=== PATIENT | male | born 1980 | race African-American/Black ===

== ENCOUNTER 2016-08-31 07:36 | Emergency (ER) | payer BC ==
[2016-08-31 07:48] VITALS: BP 151/95
--- NOTE | 2016-08-31 08:09 | RAD ---
INDICATION: RIGHT wrist pain medially and decreased range of motion post fall. COMPARISON: None. TECHNIQUE: AP, lateral, and oblique views RIGHT wrist. REPORT: There is dislocation of the carpus posteriorly at the radiocarpal joint with the lunate maintaining alignment with the radiocarpal joint. No fracture evident. Scapholunate and lunotriquetral diastases favoring ligament tears. Associated soft tissue swelling about the wrist. IMPRESSION: Perilunate dislocation. As there is high association of scaphoid fracture (60%) with perilunate dislocation further assessment with CT suggested.
[2016-08-31] MEDS ORDERED: Ibuprofen TAB* 400 MG PO ONE (08:16)
--- NOTE | 2016-08-31 08:25 | UC ---
Upper Extremity HPI - HPI Summary HPI Summary: fell down stairs 2d ago, fell onto outstretched right hand. Immediate pain and swelling. Unable to use wrist since then due to pain. - History of Current Complaint Chief Complaint: UCUpperExtremity Stated Complaint: RIGHT WRIST INJURY Time Seen by Provider: 08/31/16 07:45 Hx Obtained From: Patient ?: No Onset/Duration: Sudden Onset, Lasting Days - 2 Severity Initially: Severe Severity Currently: Moderate Location Of Pain: Is Discrete @ - right wrist Character: Dull, Aching, Stiffness Aggravating Factor(s): Movement Alleviating Factor(s): Ice Associated Signs And Symptoms: Positive: Swelling Related History: Dominant Hand Right - Risk Factors Non-Orthopedic Risk Factor: Negative DVT Risk Factors: Negative Septic Arthritis Risk Factor: Negative Compartment Syndrome Risk Factors: Pain - Allergies/Home Medications Allergies/Adverse Reactions: Allergies Allergy/AdvReac Type Severity Reaction Status Date / Time No Known Allergies Allergy Verified 08/31/16 07:43 Home Medications: Home Medications Ibuprofen [Advil] 800 mg PO ONCE PRN 08/31/16 [History Confirmed 08/31/16] PMH/Surg Hx/FS Hx/Imm Hx Previously Healthy: Yes - Surgical History Surgical History: None - Family History Known Family History: Positive: Other - no skeletal disorders - Social History Occupation: Employed Full-time Lives: With Family Alcohol Use: Occasionally Substance Use Type: None Smoking Status (MU): Never Smoked Tobacco Review of Systems Constitutional: Negative Skin: Negative Eyes: Negative ENT: Negative Respiratory: Negative Cardiovascular: Negative Gastrointestinal: Negative Genitourinary: Negative Motor: Negative Neurovascular: Negative Musculoskeletal: Arthralgia, Decreased ROM, Edema Neurological: Negative Psychological: Negative All Other Systems Reviewed And Are Negative: Yes Physical Exam Triage Information Reviewed: Yes Appearance: Well-Appearing, No Pain Distress, Well-Nourished Vital Signs: Initial Vital Signs Temp 98.2 F 08/31/16 07:45 Pulse 59 08/31/16 07:45 Resp 16 08/31/16 07:45 BP 151/95 08/31/16 07:45 Pulse Ox 100 08/31/16 07:45 Vital Signs Reviewed: Yes Eye Exam: Normal Neck exam: Normal Respiratory Exam: Normal Cardiovascular Exam: Normal Musculoskeletal Exam: Other - right hand and wrist swollen and diffusely tender. Pain with any motion of wrist or fingers. Neurological Exam: Normal Psychological Exam: Normal Skin Exam: Normal Diagnostics - Laboratory Diagnostic Studies Completed/Ordered: wrist xray: scapholunate dislocation Upper Extremity Course/Dx - Course Course Of Treatment: discussed with Dr. Avalos (Orthopedics). He spoke with Dr. Roe, Hand Surgery. Dr. Roe will see this patient in the ER at [place], may need surgical repair. Patient signs form to drive himself to the ER. D/[place] [facility] [place] Differential Dx/Diagnosis Differential Diagnosis/HQI/PQRI: Fracture (Closed), Sprain Provider Diagnoses: scapholunate dislocation Discharge - Discharge Plan Condition: Stable Disposition: TRANS HIGHER LVL OF CARE FAC Referrals: No Primary Care Phys,NOPCP [Primary Care Provider] -
--- NOTE | 2016-08-31 09:20 | RAD ---
INDICATION: Perilunate dislocation. COMPARISON: Comparison is made with a prior x-ray study of the right wrist obtained earlier today. TECHNIQUE: Contiguous axial sections were obtained of the right wrist. Images were reconstructed in the sagittal and coronal planes. FINDINGS: There is diffuse soft tissue swelling present. There is posterior dislocation of the capitate and carpal bones posterior relative to the lunate bone consistent with a perilunate dislocation. The lunate remains in relative normal alignment with the radius. The lunate and capitate bones are overriding by approximately 7 mm. There are couple small chip fracture fragments located between the posterior aspect of the distal radius and scaphoid bone measuring 1-3 mm in size. There is also a small fracture fragment located between the lunate and triquetral bones measuring approximately 1-2 mm in size. IMPRESSION: PERILUNATE DISLOCATION, THERE ARE SMALL CHIP FRACTURE FRAGMENTS LOCATED BETWEEN THE SCAPHOID BONE AND DISTAL RADIUS AND BETWEEN THE LUNATE AND TRIQUETRAL BONES.
== END 2016-08-31 09:01 | disposition short-term general hospital (02) ==
LOC: UCCORT 07:36
DX: S62.001A Unspecified fracture of navicular [scaphoid] bone of right wrist, initial encounter for closed fracture (principal); W10.9XXA Fall (on) (from) unspecified stairs and steps, initial encounter; Y92.9 Unspecified place or not applicable
CPT/HCPCS: 99202; A9270-GY; G0463

== ENCOUNTER 2016-08-31 10:21 | Emergency (ER) | payer BC ==
[2016-08-31 10:35] VITALS: BP 162/98
--- NOTE | 2016-08-31 12:21 | ED ---
Ramirez Melara Adam, scribed for Arie Bolden MD on 08/31/16 at 1049 . Upper Extremity Pain - HPI Summary HPI Summary: A 36 y/o male presents to the ED from [facility] c/o right hand/wrist pain after falling down 6-7 stairs 2 days ago. Patient has decreased ROM and swelling to the right hand. He was diagnosed with a perilunate dislocation by CT scan at [facility] earlier today and was sent to the ED for a consult with Ortho. - History of Current Complaint Chief Complaint: EDExtremityUpper Stated Complaint: RT HAND INJURY Time Seen by Provider: 08/31/16 10:39 Hx Obtained From: Patient, Medical Records - Sent from [facility] Mechanism Of Injury: Fall From Height Of: - 6-7 stairs Onset/Duration: Started Days Ago - 2 days Timing: Constant Severity Initially: Moderate Severity Currently: Moderate Pain Location: Wrist - Right, Hand - Right Character: Dull, Aching Aggravating Factor(s): Movement Alleviating Factor(s): Ice Associated Signs & Symptoms: Positive: Swelling - Allergies/Home Medications Allergies/Adverse Reactions: Allergies Allergy/AdvReac Type Severity Reaction Status Date / Time No Known Allergies Allergy Verified 08/31/16 10:31 PMH/Surg Hx/FS Hx/Imm Hx Endocrine/Hematology History: Denies: Hx Diabetes Musculoskeletal History: Denies: Hx Arthritis Infectious Disease History: No Infectious Disease History: Denies: Traveled Outside the [place] in Last 30 Days - Family History Known Family History: Positive: Other - no skeletal disorders - Social History Alcohol Use: Occasionally Substance Use Type: Reports: None Smoking Status (MU): Never Smoked Tobacco Review of Systems Constitutional: Negative Negative: Fever Eyes: Negative ENT: Negative Cardiovascular: Negative Respiratory: Negative Gastrointestinal: Negative Genitourinary: Negative Positive: Arthralgia - Right hand/wrist, Edema - Right hand/wrist Skin: Negative Neurological: Negative Psychological: Normal All Other Systems Reviewed And Are Negative: Yes Physical Exam Triage Information Reviewed: Yes Vital Signs On Initial Exam: Initial Vitals Temp Pulse Resp BP Pulse Ox 98.4 F 52 16 162/98 100 08/31/16 10:31 08/31/16 10:31 08/31/16 10:31 08/31/16 10:31 08/31/16 10:31 Vital Signs Reviewed: Yes Appearance: Positive: Well-Appearing, No Pain Distress Skin: Positive: Warm, Skin Color Reflects Adequate Perfusion, Dry Head/Face: Positive: Normal Head/Face Inspection Eyes: Positive: EOMI, MAXINE ENT: Positive: Normal ENT inspection Neck: Positive: Supple, Nontender Respiratory/Lung Sounds: Positive: Other - no difficulty breathing Cardiovascular: Positive: RRR Abdomen Description: Positive: Nontender, Soft Bowel Sounds: Positive: Present Musculoskeletal: Positive: Edema Right - wrist. Negative: Strength/ROM Intact - Decreased ROM right wrist Neurological: Positive: Normal, Sensory/Motor Intact, Alert, Oriented to Person Place, Time Psychiatric: Positive: Normal Diagnostics - Vital Signs Vital Signs Temp Pulse Resp BP Pulse Ox 08/31/16 10:31 98.4 F 52 16 162/98 100 - Laboratory Lab Statement: Any lab studies that have been ordered have been reviewed, and results considered in the medical decision making process. Course/Dx - Course Course Of Treatment: Call made to Dr. Myrick (ortho) at 10:45. In surgery and will call back when out of surgery. 12:15 - Dr Myrick' will not be able to see patient until 17:00 tonight. Patient will be discharged and then return later today. Assessment/Plan: DISCUSSED PLAN TO GO TO OR FOR WRIST REDUCTION AFTER 5PM. PATIENT STATES HE HAS FAMILY OBLIGATIONS AND WISHES TO LEAVE THE ED AND RETURN AT 4:30PM. DISCHARGE HOME STABLE. - Diagnoses Provider Diagnoses: Dislocation closed, wrist Discharge - Discharge Plan Condition: Stable Disposition: HOME Referrals: [facility] [Outside] Kennedy Myrick MD [Medical Doctor] - No Primary Care Phys,NOPCP [Primary Care Provider] - Additional Instructions: FOLLOW UP WITH ORTHOPEDICS. DR MYRICK WILL BE AVAILABLE AFTER 5PM TODAY. HE IS PLANNING ON SURGERY TO REDUCE YOUR DISLOCATED WRIST. The documentation as recorded by the Ramirez carrillo Adam accurately reflects the service I personally performed and the decisions made by me, Arie Bolden MD.
== END 2016-08-31 12:24 | disposition home or self-care (01) ==
LOC: ED 10:21
DX: S63.004A Unspecified dislocation of right wrist and hand, initial encounter (principal); M79.641 Pain in right hand; W10.9XXA Fall (on) (from) unspecified stairs and steps, initial encounter; Y93.9 Activity, unspecified; Y92.9 Unspecified place or not applicable; Y99.9 Unspecified external cause status
CPT/HCPCS: 99281

== ENCOUNTER 2016-08-31 17:08 | Observation (INO) | payer BC ==
--- NOTE | 2016-08-31 17:47 | ED ---
Upper Extremity Pain - HPI Summary HPI Summary: The patient is a 36 year old male presenting to the ED with complaint of right hand and wrist pain after accidental fall down stairs yesterday. Complains of 8/ 10 pain non-radiating with swelling and limited mobility of right wrist. Upon evaluation at [facility] earlier today, was diagnosed with perilunate dislocation and advised to return to ED this evening for definitive surgical intervention with orthopedic hand surgeon, Dr. Roe. Last PO intake 1300 today. Denies significant past medical history or surgical history. No significant FH. No IVDU. NKDA. SH: Current smoker and occasional alcohol use. - History of Current Complaint Chief Complaint: EDExtremityUpper Stated Complaint: SENT BY DR AWAD/FX WRIST Time Seen by Provider: 08/31/16 17:31 - Allergies/Home Medications Allergies/Adverse Reactions: Allergies Allergy/AdvReac Type Severity Reaction Status Date / Time No Known Allergies Allergy Verified 08/31/16 10:31 Home Medications: Home Medications Multiple Vitamin [Multi Vitamin] 1 tab PO DAILY 08/31/16 [History Confirmed 05/09] PMH/Surg Hx/FS Hx/Imm Hx Previously Healthy: Yes Endocrine/Hematology History: Denies: Hx Diabetes Musculoskeletal History: Denies: Hx Arthritis Infectious Disease History: No Infectious Disease History: Denies: Traveled Outside the [place] in Last 30 Days - Family History Known Family History: Positive: Other - no skeletal disorders - Social History Alcohol Use: Occasionally Substance Use Type: Reports: None Smoking Status (MU): Never Smoked Tobacco Review of Systems Constitutional: Negative Cardiovascular: Negative Respiratory: Negative Gastrointestinal: Negative Positive: Arthralgia, Decreased ROM, Edema Skin: Negative Neurological: Negative All Other Systems Reviewed And Are Negative: Yes Physical Exam Triage Information Reviewed: Yes Vital Signs On Initial Exam: Initial Vitals Temp Pulse Resp BP Pulse Ox 98.9 F 84 16 138/105 100 08/31/16 17:22 08/31/16 17:22 08/31/16 17:22 08/31/16 17:22 08/31/16 17:22 Vital Signs Reviewed: Yes Appearance: Positive: Well-Appearing, Well-Nourished, Pain Distress - mild pain guarding right hand/wrist Skin: Positive: Warm, Skin Color Reflects Adequate Perfusion, Dry Head/Face: Positive: Normal Head/Face Inspection Eyes: Positive: Other: - Anicteric ENT: Positive: Hearing grossly normal Neck: Positive: Supple Respiratory/Lung Sounds: Positive: Other - normal respirations Cardiovascular: Positive: Normal - regular rate and rhythm, radial pulse 2+, capillary refill intact Musculoskeletal: Positive: Limited @ - decreased right wrist extension, inversion and eversion; limited right thumb flexion, Pain @ - tenderness right snuff box, 2nd proximal MC, and distal radius, Edema Right - diffuse right dorsal hand swelling without significant bruising Neurological: Positive: Sensory/Motor Intact, Reflexes Intact - brachioradialis reflex 2+, NV Bundle Intact Distally Psychiatric: Positive: Normal AVPU Assessment: Alert Diagnostics - Vital Signs Vital Signs Temp Pulse Resp BP Pulse Ox 08/31/16 17:22 98.9 F 84 16 138/105 100 - Laboratory Result Diagrams: 08/31/16 17:45 08/31/16 17:45 Lab Statement: Any lab studies that have been ordered have been reviewed, and results considered in the medical decision making process. Course/Dx - Diagnoses Provider Diagnoses: Dislocation of carpal joint, Fracture, carpal bone closed - Physician Notifications Discussed Care Of Patient With: Dr. Roe - requested CBC, BMP, NPO. Patient to go to OR tonight. Instructed by Provider To: Admit As Observation Discharge - Discharge Plan Condition: Stable Disposition: ADMITTED TO [facility]
[2016-08-31 17:55] LABS: Hematocrit 45 % (42-52); Hemoglobin 15.5 g/dl (14.0-18.0); Mean Corpuscular HGB Conc 35 g/dl (31-36); Mean Corpuscular Hemoglobin 31 pg (27-31); Mean Corpuscular Volume 90 fL (80-94); Mean Platelet Volume 7 um3 (7.4-10.4); Red Blood Count 4.99 10^6/ul (4.0-5.4); Red Cell Distribution Width 13 % (10.5-15); White Blood Count 5.4 10^3/ul (3.5-10.8)
[2016-08-31 18:10] LABS: BUN/Creatinine Ratio 7.9 (8-20); Calcium 9.7 mg/dL (8.6-10.3); EGFR African American 107.5 (>60); EGFR Non-African American 83.6 (>60); Potassium 3.5 mmol/L (3.5-5.0)
[2016-08-31] MEDS ORDERED: Famotidine IV* 10 MG/ML 2 ML (20 mg) ONE (19:16)
[2016-08-31] MEDS ORDERED: Dexamethasone IV* 4 MG/ML 1 ML (4 MG) ONE (19:16)
--- NOTE | 2016-08-31 19:20 | PN ---
Progress Note - Progress Note Note: Please see hand written H&P in chart. In short, fall on 2 days ago and since has had wrist pain. [facility]. Diagnosed with a perilunate dislocation. A/P: Right 2 day old perilunate dislocation, lesser arc Plan for right wrist open reduction and ligament repair with pinning tonight in the operating room
[2016-08-31] MEDS ORDERED: Lidocaine 2% MPF* 2 ML VIAL ONE (19:29)
[2016-08-31] MEDS ORDERED: Propofol* 10 MG/ML 20 ML BTL IV PUSH ONE (19:29)
[2016-08-31] MEDS ORDERED: Ondansetron INJ* 2 MG/ML VIAL ONE (19:29)
[2016-08-31] MEDS ORDERED: Ketorolac INJ* 30 MG/ML 1 ML VIAL ONE (19:29)
[2016-08-31] MEDS ORDERED: Bupivacaine 0.5% SDV PF* 30 ML VIAL ONE (19:30)
[2016-08-31] MEDS ORDERED: Midazolam* 1 MG/ML 5 ML VIAL (5 MG) ONE (19:31)
[2016-08-31] MEDS ORDERED: fentaNYL* 50 MCG/ML 5 ML VIAL (250 MCG VIAL) ONE (19:31)
[2016-08-31] MEDS ORDERED: ceFAZolin 2 GM PREMIX (*) 2 GM/50 ML BAG IVPB ONE (19:33)
[2016-08-31] MEDS ORDERED: Famotidine IV* 10 MG/ML 2 ML (20 mg) IV ONE (19:38)
[2016-08-31] MEDS ORDERED: Dexamethasone TAB* 4 MG PO ONE (19:38)
[2016-08-31] MEDS ORDERED: Buffered Lidocaine 1% SYR 3ML* 3 ML/SYR SYRINGE INTRADERM ONE (19:38)
[2016-08-31] MEDS ORDERED: DiMENhydriNATE IV* 50 MG/ML VIAL IV PUSH PRN (19:39)
[2016-08-31] MEDS ORDERED: HYDROmorphone INJ* 1 MG/ML CARPUJECT SYRINGE IV PRN (19:39)
[2016-08-31] MEDS ORDERED: PROCHLORPERAZINE INJ 5 MG/ML 2 ML VIAL IV PRN (19:39)
[2016-08-31] MEDS ORDERED: Ondansetron INJ* 2 MG/ML VIAL IV PRN (19:39)
[2016-08-31] MEDS ORDERED: fentaNYL* 50 MCG/ML 2 ML VIAL (100 MCG VIAL) IV PRN (19:39)
[2016-08-31] MEDS ORDERED: Bupivacaine 0.25% SDV* 30 ML ONE (19:44)
[2016-08-31] MEDS ORDERED: Dexamethasone IV* 4 MG/ML 1 ML (4 MG) IV SLOW PU ONE (19:54)
[2016-08-31] MEDS ORDERED: HYDROmorphone INJ* 1 MG/ML CARPUJECT SYRINGE ONE (20:47)
[2016-09-01] MEDS ORDERED: Ibuprofen TAB* 800 MG PO PRN (00:32)
[2016-09-01] MEDS ORDERED: Morphine INJ* 2 MG/ML 1 ML CARPUJECT IV PRN (00:33)
[2016-09-01] MEDS ORDERED: HYDROcodone/ACETAMIN 5-325 MG* 1 TAB PO PRN (00:33)
[2016-09-01] MEDS ORDERED: ceFAZolin 1 GM in Dextrose (*) 1 GM/50 ML BAG IVPB SCH (02:00)
[2016-09-01 02:06] VITALS: BP 125/84
--- NOTE | 2016-09-01 03:49 | HP ---
HISTORY AND PHYSICAL: DATE OF ADMISSION: 08/31/16 CHIEF COMPLAINT: Right wrist perilunate dislocation. HISTORY OF PRESENT ILLNESS: Edward is a 36-year-old male. Two days ago, he fell down the stairs. He has had right wrist pain ever since then. When it was not getting better, he went to the [facility] in [place] this morning where he was diagnosed with a perilunate dislocation and transferred to our emergency room. He had to leave the emergency room and then I saw him later in the afternoon when he returned. Overall, he complains of right wrist pain and denies pain anywhere else in his body. He does have significant numbness and tingling in the index, long, and radial half of the ring finger. PAST MEDICAL HISTORY: Denies. PAST SURGICAL HISTORY: Negative. MEDICATIONS: Negative. ALLERGIES: No known drug allergies. FAMILY HISTORY: No history of musculoskeletal source of bleeding or anesthesia source. SOCIAL HISTORY: He is a nonsmoker. He denies recreational drug use. He lives independently. REVIEW OF SYSTEMS: A full 10-point review of system was conducted and was negative except for right wrist pain. PHYSICAL EXAMINATION GENERAL: Awake, alert, and oriented. SKIN: Intact. It is not an open injury. There is expected swelling. Some trace ecchymosis. NEUROLOGICAL: Sensation is intact to light touch in all the fingers. He reports that light touch sensation is diminished and abnormal in the index, long , and radial half of the ring finger. VASCULAR: The hand is warm and well-perfused. MUSCULOSKELETAL: There is a quite a bit of dorsal hand right hand swelling. Motion exam is limited by pain. Stability exam is not tested due to the injury. The alignment showed expected little bit dorsal deformity of the wrist. IMAGING: X-ray and CT of the right wrist were reviewed by me. He has a ligamentous or lesser arc right wrist perilunate dislocation with a lunate seen appropriately in the lunate facet. IMPRESSION: Right wrist lesser arc perilunate dislocation. PLAN: We did not go to operating room tonight, and I will plan for an open reduction and repair of the ligaments as I am able. I will augment my ligamentous repair with some buried pins. I told him the pins will be in place for about 12 weeks and then we will get the pins out and get him moving the wrist. We talked about risks and benefits. I told him that he is going to be stiff when all is said and done. I also told him that sometimes we repair this and it fails to heal or the risk ___ degenerative arthritic wrist and this requires further interventions. He understands this. We are going to proceed. [id number]/[facility] #: [id number] JOHNSON
--- NOTE | 2016-09-01 16:42 | OP ---
DATE OF OPERATION: 08/31/16 - ROOM #347 DATE OF : 80 SURGEON: Kennedy Roe MD [employer] CONSULTANT: YUMI Solis ANESTHESIOLOGIST: Dr. Rocha. ANESTHESIA: Supraclavicular block plus general. PRE-OP DIAGNOSES: 1. Right wrist perilunate dislocation. 2. Right wrist carpal tunnel syndrome. POST-OP DIAGNOSES: 1. Right wrist perilunate dislocation. 2. Right wrist carpal tunnel syndrome. OPERATIVE PROCEDURE: 1. Open reduction and repair of right wrist perilunate dislocation with repair of scapholunate and lunotriquetral ligaments and percutaneous pinning. 2. Right posterior interosseous nerve neurectomy. 3. Right carpal tunnel release. INDICATIONS: Edward is a 36-year-old male who fell down the stairs 2 days ago. He presented to the emergency room today 2 days out with a perilunate dislocation. He was seen in the emergency room and ultimately we ended up talking about the risks and benefits and electing to proceed with open repair. ESTIMATED BLOOD LOSS: 5 mL. COMPLICATIONS: None. FINDINGS: Scapholunate ligament tear avulsed off the lunate and more proximally off the scaphoid. Lunotriquetral tear avulsed off the lunate and again more proximally off the triquetrum. DESCRIPTION OF PROCEDURE: Edward was seen in the preoperative holding area and the correct site and side were marked. He came back to the operating room where he was placed supine on the OR table with the use of the arm board. The arm was prepped and draped in the usual fashion. A formal time-out was performed. A supraclavicular block had been performed previously. The arm was exsanguinated and the tourniquet inflated to 250 mmHg. We first went ahead and made a standard longitudinal carpal tunnel incision in the proximal palm. Dissection was carried down through the skin, subcutaneous tissue , palmar fascia. I went ahead and released the transverse carpal ligament just off the radial aspect of the hook of the hamate. This was completed distally and proximally with use of the tenotomy scissors. There was absolutely no compression on the nerves, so we irrigated the wound and closed the wound with 4 -0 nylon suture. We then put the hand over and dorsal midline incision was made in line with the third metacarpal just radial to Braeden's tubercle and extending little bit of the distal forearm. Dissection was carried down longitudinally to the level of the extensor retinaculum and dorsal extrinsic ligaments. Full thickness flaps were raised radially and ulnarly. I then went ahead and released the extensor retinaculum over the third dorsal compartment and transposed the EPL tendon and retracted it radially. The dissection was carried along the course of the dorsal radiocarpal ligament. Ultimately, this was all retracted ulnarly. I then went ahead and raised the distally based capsular U flap to expose the dorsal carpus. The scapholunate ligaments and the lunotriquetral ligaments were identified. The ligament had torn off the distal aspect of the lunate and off the proximal aspect of the scaphoid. With regards to the lunotriquetral ligament, it had torn off the distal aspect of the lunate and proximally off the triquetrum. At this point, I went ahead and took the lunate out of extension and placed a pin through the radiocarpal joint to hold the lunate in neutral position. I then placed a 0.062 K- wire in the scaphoid and reduced the scaphoid. I had previously open reduced the perilunate dislocation. Once I had the alignment satisfactory, I went ahead and placed two micro Mitek suture anchors in the radial aspect of the lunate and one just a little bit more proximally in the ulnar aspect of the scaphoid. The sutures were then passed in horizontal mattress-type fashion and tied down to repair the scapholunate ligament. We checked fluoroscopy and everything looked good. So, we went ahead and placed one scaphocapitate pin and two scapholunate pins in a standard fashion. We then went ahead and turned our attention to the lunotriquetral joint and I placed one micro Mitek anchor in the lunate and one in the triquetrum. The lunotriquetral ligament was likewise reduced and repaired with some horizontal mattress sutures. I then placed one lunotriquetral K-wire. These were 0.045 K-wires. We checked the reduction again under fluoroscopy. Everything looked nice, so we went ahead and irrigated the wound. Clinically, everything moved as a block and looked nice. Please note that while I was releasing the extensor retinaculum and raising the distally based U capsular flap, I identified the posterior interosseous nerve in the bed of the fourth dorsal compartment and dissected it out with the tenotomy scissors and then excised the distal 2 to 3 cm of posterior interosseous nerve to denervate the posterior wrist capsult and aid in pain relief. After everything was irrigated, I went ahead and closed the capsular flap with some 3-0 Ethibond suture. I then went ahead and transposed the EPL tendon and then closed the extensor retinaculum and dorsal radiocarpal ligament with some 3 -0 Ethibond suture. The skin was then approximated with 3-0 Polysorb and closed with 4-0 nylon. I then went ahead and dressed all the wounds with Xeroform, 4x4's, sterile Webril, and a sugar-tong splint was applied. He was then woken back up and taken to the recovery room in stable condition. POSTOPERATIVE PLAN: Edward is going to follow up with me in about a week. He is going to be in the splint and use a sling. It is okay for him to wiggle his fingers. Please note that I had clipped the pins deep to the skin and buried the pins. We will plan to leave these for a total of 12 weeks. [id number]/[facility] #: [id number] [facility]IT[facility]eto
--- NOTE | 2016-09-02 07:50 | RAD ---
INDICATION: Right wrist perilunate dislocation COMPARISONS: August 31, 2016 TECHNIQUE: Fluoroscopy was provided for a surgical procedure. Total fluoroscopy time is: 1 minute, 4 seconds FINDINGS: Spot images demonstrate fixation across the carpus IMPRESSION: FLUOROSCOPY WAS PROVIDED FOR A SURGICAL PROCEDURE CPT II Codes: 6045F
--- NOTE | 2017-01-26 09:02 | DS ---
DISCHARGE SUMMARY: DATE OF ADMISSION: 08/31/16 DATE OF DISCHARGE: 09/01/16 ADMISSION DIAGNOSES: 1. Right wrist perilunate dislocation. 2. Right carpal tunnel syndrome. DISCHARGE DIAGNOSES: 1. Right wrist perilunate dislocation. 2. Right carpal tunnel syndrome. PROCEDURES PERFORMED: Open reduction and repair of right wrist perilunate dislocation with posterior interosseous nerve neurectomy and right carpal tunnel release. HOSPITAL COURSE: Edward was admitted preop and then we performed the repair of the right wrist perilunate dislocation. He went home later that day. There were no other events. DISPOSITION: He was discharged to home. DISCHARGE MEDICATIONS: Please see the discharge med reconciliation. There were no changes to his home medications. He was prescribed pain medication. [id number]/[facility] #: [id number] JOHNSON
== END 2016-09-01 04:15 | disposition home or self-care (01) ==
LOC: ED 17:08 → OR 19:01 → SSU 23:50
PROVIDERS: ADMIT Orthopaedic Surgery Hand Surgery; ATTEND Orthopaedic Surgery Hand Surgery
PROC: 0RSN0ZZ Reposition Right Wrist Joint, Open Approach (ICD-10-PCS; 2016-08-31)
PROC: 01N50ZZ Release Median Nerve, Open Approach (ICD-10-PCS; principal; 2016-08-31 20:26)
DX: S63.094A Other dislocation of right wrist and hand, initial encounter (principal); W10.9XXA Fall (on) (from) unspecified stairs and steps, initial encounter; Y92.9 Unspecified place or not applicable; G56.01 Carpal tunnel syndrome, right upper limb; F17.210 Nicotine dependence, cigarettes, uncomplicated
CPT/HCPCS: 36415; 76000; 80048; 85025; 99283; 99406; C1713; C1776; G0378; J0690; J1100; J1170; J1885; J2250; J2405; J2704; J3010

== ENCOUNTER → 2016-11-26 10:48 | Day surgery (SDC) | payer BC ==
[~2016-11-26 10:48] MED LIST: Lidocain 1% EPI 1:100,000 * 30 ML MDV ONE; Sodium Bicarbonate 8.4% SYR* 10 ML SYRINGE ONE
[2016-11-26 14:23] VITALS: BP 159/99
--- NOTE | 2016-11-27 03:07 | OP ---
DATE OF OPERATION: 11/26/16 - [facility] DATE OF : 80 SURGEON: Kennedy Roe MD CHECK GRADER: YUMI Ayers ANESTHESIOLOGIST: None. ANESTHESIA: Local only with 1% lidocaine with epinephrine and bicarbonate. PRE-OP DIAGNOSES: 1. Retained pins, right wrist, status post perilunate repair 12 to 13 weeks ago. 2. Hypertrophic pin tract, right radial wrist. POST-OP DIAGNOSES: 1. Retained pins right wrist status post perilunate repair 12 to 13 weeks ago. 2. Hypertrophic pin tract, right radial wrist. OPERATIVE PROCEDURE: 1. Removal of 4 buried pins, right wrist. 2. Excision of hypertrophic right radial scaphocapitate pin tract and debridement of pin tract and closure of wound. INDICATIONS: Edward is 36. He had a perilunate dislocation that was repaired and had temporary pinning performed. He has been immobilized for 12 weeks. It is now time for pin removal. ESTIMATED BLOOD LOSS: 5 mL. COMPLICATIONS: None. FINDINGS: As expected. DESCRIPTION OF PROCEDURE: Edward was seen in the preoperative holding area and the correct side, site, and procedure were identified. I anesthetized the operative area, and then he came back to the operating room where the arm was prepped and draped in the usual fashion and a time-out was performed. We began by making a longitudinal incision over the two scapholunate pins radially. This was continued down and the hypertrophic scaphocapitate pin tract was ellipsed out. This was debrided full thickness down to the deeper fascia layers. The sensory branches of the radial nerve were identified and were retracted and protected throughout the surgery. The first pin removed with the scaphocapitate pin. I did subsequently removed the two more distal scapholunate pins. There was some hypertrophic granulation tissue about the scaphocapitate pin tract. This was curetted out. The area was then copiously irrigated. The skin flaps were contoured and then closed with some 4-0 nylon suture in a straight line. We then turned our attention ulnarly, where the lunotriquetral pin was removed by incising the skin overlying the pin, freeing up the soft tissue via blunt dissection, identifying the pin, and then removing the pin in standard fashion with a needle route relief driver. The pin tract was irrigated and then closed with some 4- 0 nylon suture. I took some fluoroscopic images and then we went ahead and dressed the wounds with Xeroform 4x4's, sterile Webril, and an Cyrus bandage. He was then taken to the recovery room in stable condition. POSTOPERATIVE PLAN: We are going to get him into therapy to start working on some gentle motion, and I am going to have him hold off on any heavy lifting, pushing or pulling for another 4 or 5 weeks. [id number]/[facility] #: [id number] MTDD
--- NOTE | 2016-11-28 09:33 | RAD ---
INDICATION: Carpal fusion COMPARISON: None FINDINGS: 34 seconds of fluoroscopy were provided for the orthopedics department. Fluoroscopic spot imaging of the right wrist were obtained for operative control and show carpal fusion with placement of percutaneous pins . CPT II Codes: 6045F (fluoro time doc)
== END | disposition home or self-care (01) ==
LOC: OREAST 10:48
PROVIDERS: ATTEND Orthopaedic Surgery Hand Surgery
DX: S63.094D Other dislocation of right wrist and hand, subsequent encounter (principal); T84.84XD Pain due to internal orthopedic prosthetic devices, implants and grafts, subsequent encounter; Y83.1 Surgical operation with implant of artificial internal device as the cause of abnormal reaction of the patient, or of later complication, without mention of misadventure at the time of the procedure; F17.210 Nicotine dependence, cigarettes, uncomplicated
CPT/HCPCS: 76000; 88300; 88305

== ENCOUNTER 2019-08-24 15:12 | Emergency (ER) | payer BC, OTHER ==
[2019-08-24 17:27] VITALS: BP 179/93
--- NOTE | 2019-08-24 17:32 | UC ---
General HPI - HPI Summary HPI Summary: Patient is a 39yo male presenting with numbness of distal R index finger x3 days. Patient states it began with numbness of fingers 2-5 of R hand but that 3- 5 symptoms have resolved. Patient unsure of what he was doing when it began. Patient noted intermittent tingling of index finger as well as numbness. Denies pain. Denies decreased ROM. Denies skin changes. Denies recent injury or trauma to RUE or neck. Denies anything like this in the past. 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 No L hand symptoms. - History of Current Complaint Chief Complaint: UCUpperExtremity Stated Complaint: NUMBNESS LEFT INDEX FINGER Hx Obtained From: Patient Onset/Duration: Sudden Onset Pain Intensity: 7 - Allergy/Home Medications Allergies/Adverse Reactions: Allergies Allergy/AdvReac Type Severity Reaction Status Date / Time No Known Allergies Allergy Verified 08/24/19 17:20 Home Medications: Home Medications NK [No Home Medications Reported] 08/24/19 [History Confirmed 08/24/19] PMH/Surg Hx/FS Hx/Imm Hx Previously Healthy: Yes - Surgical History Surgical History: Yes Surgery Procedure, Year, and Place: ORIF right wrist 08/31/2016 - Family History Known Family History: Positive: Other - no skeletal disorders - Social History Alcohol Use: Occasionally Substance Use Type: None Smoking Status (MU): Never Smoked Tobacco - Immunization History Most Recent Influenza Vaccination: unknown Most Recent Tetanus Shot: unknown Most Recent Pneumonia Vaccination: unknown Review of Systems All Other Systems Reviewed And Are Negative: Yes Constitutional: Positive: Negative Respiratory: Positive: Negative Cardiovascular: Positive: Negative. Negative: Chest Pain Gastrointestinal: Positive: Negative Motor: Positive: Negative Neurovascular: Positive: Negative Neurological: Positive: Paresthesia - R index finger, Numbness - distal R index finger Physical Exam Triage Information Reviewed: Yes Appearance: Well-Appearing, No Pain Distress, Well-Nourished Vital Signs: Initial Vital Signs Temp 98.4 F 08/24/19 17:21 Pulse 61 08/24/19 17:21 Resp 16 08/24/19 17:21 BP 179/93 08/24/19 17:21 Pulse Ox 100 08/24/19 17:21 Vital Signs Reviewed: Yes Eyes: Positive: Conjunctiva Clear ENT: Positive: Hearing grossly normal Neck: Positive: Supple Respiratory Exam: Normal Respiratory: Positive: Lungs clear, Normal breath sounds, No respiratory distress Cardiovascular Exam: Normal Cardiovascular: Positive: RRR, No Murmur, Pulses Normal - strong radial pulses b /l, Brisk Capillary Refill - <2 sec Musculoskeletal: Positive: Strength Intact - 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 Negative phalen and tinels. Negative alejandro. Neurological: Positive: Alert, Other: - patient notes diminished sensation of distal phalanx of R index finger Skin Exam: Normal - no erythema or ecchymosis Course/Dx - Course Course Of Treatment: Discussed unclear etiology of numbness of distal R index finger with patient. Discussed need for further evaluation and possible imaging if symptoms persist. Patient became agitated stating, "I thought I was going to receive help coming here! I can't deal with this pain!" I informed the patient that he will need follow up with orthopedics and provided him with referral. Patient dismissed my advice, left the room, and went to the waiting room to wait for his discharge papers. I discussed the patient with Dr. Cervantes who agreed with the plan. - Diagnoses Provider Diagnosis: Numbness of finger Discharge ED - Sign-Out/Discharge Documenting (check all that apply): Patient Departure All imaging exams completed and their final reports reviewed: No Studies - Discharge Plan Condition: Stable Disposition: HOME Patient Education Materials: Cervical Radiculopathy (ED) Referrals: [facility] [Outside] Roman Avalos MD [Medical Doctor] - Additional Instructions: As discussed, it is unclear what may be causing the numbness in your finger today. You may take Aleve and ice/heat to help alleviate symptoms. It is recommended that you follow up with the orthopedics referral listed below for further evaluation and possible imaging. - Billing Disposition and Condition Condition: STABLE Disposition: Home - Attestation Statements Provider Attestation: This patient was not seen by me. I was available for consult. Chart reviewed. JENY
== END 2019-08-24 18:13 | disposition home or self-care (01) ==
LOC: UCCORT 15:12
DX: R20.0 Anesthesia of skin (principal)
CPT/HCPCS: 99211; G0463